=== PATIENT | female | born 1995 | race Asian ===

== ENCOUNTER 2019-08-24 06:00 | Emergency (ER) | payer OTHER ==
[2019-08-24 06:11] VITALS: BP 124/77; PULSE 77; TEMP 97.6; BMI 21.9
--- NOTE | 2019-08-24 06:18 | PDOC ---
History of Present Illness - General Chief Complaint: Blood/Body Fluid Exposure SJR Stated Complaint: FOREIGN BODY SPLASHED IN EYES/EMPLOYEE - History of Present Illness Initial Comments: The pt is a 24F w/ no reported PMH who presents for evaluation s/p exposure. The pt states that she was emptying a trash can while on shift when some fluid splashed in her eyes. 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 She currently endorses mild ocular burning. She denies vision changes. She rinsed her eyes for approx 3 minutes prior to evaluation. She denies any other exposure. 08/24/19 06:13 Past History - Past Medical History Allergies/Adverse Reactions: Allergies Allergy/AdvReac Type Severity Reaction Status Date / Time No Known Allergies Allergy Verified 08/24/19 06:09 Home Medications: Ambulatory Orders No Home Medications 0 dose .ROUTE UTDICT 02/19/13 COPD: No - Immunization History Immunization Up to Date: Yes - Psycho Social/Smoking Cessation Hx Smoking Status: No Smoking History: Never smoked Have you smoked in the past 12 months: No Number of Cigarettes Smoked Daily: 0 Information on smoking cessation initiated: No Hx Alcohol Use: No Drug/Substance Use Hx: No Review of Systems - Review of Systems Able to Perform ROS?: Yes Comments:: GENERAL/CONSTITUTIONAL: No fever or chills HEAD, EYES, EARS, NOSE AND THROAT: No change in vision. No change in hearing. No sore throat CARDIOVASCULAR: No chest pain RESPIRATORY: Denies cough GASTROINTESTINAL: No nausea, vomiting GENITOURINARY: No dysuria, frequency MUSCULOSKELETAL: No myalgias SKIN: No rash NEUROLOGIC: No headache, loss of consciousness, or change in strength/sensation 08/24/19 06:15 Is the patient limited [place]alan proficient: No *Physical Exam - Vital Signs Last Vital Signs Temp Pulse Resp BP Pulse Ox 97.6 F 77 20 124/77 100 08/24/19 06:09 08/24/19 06:09 08/24/19 06:09 08/24/19 06:09 08/24/19 06:09 - Physical Exam GENERAL: Awake, alert, and oriented to person/place/time, in no acute distress HEAD: No signs of trauma, normocephalic, atraumatic EYES: PERRLA, EOMI, sclera anicteric, conjunctiva clear ENT: Hearing grossly normal, nares patent, oropharynx clear without exudates. Moist mucosa LUNGS: No distress, speaks in full sentences, clear to auscultation bilaterally HEART: Regular rate and rhythm, normal S1 and S2, no murmurs appreciated, peripheral pulses normal and equal bilaterally ABDOMEN: Soft, nontender, normoactive bowel sounds. No guarding, no rebound EXTREMITIES: Normal inspection, Normal range of motion, no edema. No clubbing or cyanosis NEUROLOGICAL: Cranial nerves II through XII grossly intact. Normal speech, normal gait, no focal sensorimotor deficits SKIN: Warm, Dry 08/24/19 06:16 Medical Decision Making - Medical Decision Making The pt is a 24F w/ no reported PMH who presents for evaluation s/p eye exposure to possible feculent material. Will have pt flush/rinse eyes for 10 minutes Pt denies any vision changes No conjuctivitis Will not prophylactically give abx Will have pt observe for symptoms Will give Boostrix Plan for D/C w/ PCP f/u Discharge instructions and return precautions given Patient in agreement and verbalized understanding Dispo: Home 08/24/19 06:17 Discharge - Discharge Information Problems reviewed: Yes Clinical Impression/Diagnosis: Exposure to hazardous material Condition: Stable Disposition: HOME - Admission No - Follow up/Referral Referrals: Corry Gamino MD [Primary Care Provider] - - Patient Discharge Instructions Patient Printed Discharge Instructions: How to Handle Body Fluid 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 Review the handout provided at discharge. Continue to monitor for eye redness, change in vision, fevers, nausea/vomiting, or persistent eye irritation. Follow up with your primary care provider within a week. Return to the Emergency Department if you develop any of the above symptoms, worsening symptoms, or any new/concerning symptoms. - Post Discharge Activity Work/Back to School Note: Back to Work
[2019-08-24] MEDS ORDERED: DIPHTH,PERTUSS(ACELL),TET 0.5 ML DISP.SYRIN IM ONE ×2 (06:23→06:25)
--- NOTE | 2019-08-24 06:39 | PDOC ---
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
== END 2019-08-24 06:38 | disposition home or self-care (01) ==
LOC: JER 06:00
PROC: 3E0234Z Introduction of Serum, Toxoid and Vaccine into Muscle, Percutaneous Approach (ICD-10-PCS; principal; 2019-08-24)
DX: Z77.21 Contact with and (suspected) exposure to potentially hazardous body fluids (principal); X58.XXXA Exposure to other specified factors, initial encounter; Y93.89 Activity, other specified; Y92.230 Patient room in hospital as the place of occurrence of the external cause; Y99.0 Civilian activity done for income or pay
CPT/HCPCS: 90715; 99282-25